=== PATIENT | female | born 1980 | race Caucasian/White ===

== ENCOUNTER 2019-05-19 17:59 | Emergency (ER) | payer SELFPAY ==
[~2019-05-19] VITALS: Ht 170.2 cm; Wt 107.0 kg
[2019-05-19] MEDS ORDERED: IV NORMAL SALINE 1000ML BAG 1,000 ML IV SCH (18:51)
[2019-05-19] MEDS ORDERED: ONDANSETRON PF 4 MG/2 ML VIAL. IV ONE (19:00)
[2019-05-19] MEDS ORDERED: KETOROLAC 30 MG/ML VIAL. IV ONE (19:00)
--- NOTE | 2019-05-19 19:14 | PHYS DOC ---
Adult General Chief Complaint Chief Complaint: FLANK PAIN HPI HPI 38-year-old female presents to the emergency Department complaints of right flank pain radiation to the groin. Patient states she had symptoms of urinary tr act infection yesterday with concerns for burning as well as frequency. She was taking medications [id number] to help with symptoms subsequently developed right flank pain today as described above. She denies any nausea, vomiting, diarrhea. She states she had low-grade temperature this morning at 9 AM however that subsequently resolved. Patient went to urgent care and she was sent to this facility for further evaluation. Nothing makes her pain worse, nothing makes her pain better. She has no history of kidney stones that pass. She denies any headache chest pain or visual change. Review of Systems Review of Systems Constitutional: fever Respiratory: Denies cough or shortness of breath [] Cardiovascular: No additional information not addressed in HPI [] GI: Right flank with radiation to the groin, nausea, vomiting, bloody stools or diarrhea [] : Feels her bladder is full Musculoskeletal: right flank Integument: Denies rash or skin lesions [] Neurologic: Denies headache, focal weakness or sensory changes [] All other systems were reviewed and found to be within normal limits, except as documented in this note. Current Medications Current Medications Current Medications Medications (Trade) Dose Ordered Sig/Sunita Start Time Stop Time Status Last Admin Dose Admin Ciprofloxacin/ Dextrose 200 ml @ 200 mls/hr 1X ONCE 05/19/19 19:45 05/19/19 20:44 DC 05/19/19 20:10 200 MLS/HR Ketorolac Tromethamine (Toradol 30mg Vial) 30 mg 1X ONCE 05/19/19 19:00 05/19/19 19:16 DC 05/19/19 19:00 30 MG Ondansetron HCl (Zofran) 4 mg 1X ONCE 05/19/19 19:00 05/19/19 19:16 DC Sodium Chloride 1,000 ml @ 1,000 mls/hr Q1H 05/19/19 18:51 05/19/19 19:50 DC 05/19/19 18:51 1,000 MLS/HR Allergies Allergies Allergies Coded Allergies Type Severity Reaction Last Updated Verified Penicillins Allergy Intermediate 05/19/19 Yes Physical Exam Physical Exam Constitutional: Well developed, well nourished, no acute distress, non-toxic appearance. [] Cardiovascular:Heart rate regular rhythm, no murmur [] Lungs & Thorax: Bilateral breath sounds clear to auscultation [] Abdomen: Bowel sounds normal, soft, no tenderness, no masses, no pulsatile masses. [] Skin: Warm, dry, no erythema, no rash. [] Back: Right CVA tenderness Extremities: No tenderness, no edema. [] Neurologic: Alert and oriented X 3, no focal deficits noted. [] Psychologic: Affect normal, judgement normal, mood normal. [] Current Patient Data Lab Values Laboratory Tests Test 05/19/19 19:10 05/19/19 19:25 White Blood Count 13.3 x10^3/uL (4.0-11.0) H Red Blood Count 4.35 x10^6/uL (3.50-5.40) Hemoglobin 13.0 g/dL (12.0-15.5) Hematocrit 37.5 % (36.0-47.0) Mean Corpuscular Volume 86 fL (79-100) Mean Corpuscular Hemoglobin 30 pg (25-35) Mean Corpuscular Hemoglobin Concent 35 g/dL (31-37) Red Cell Distribution Width 13.5 % (11.5-14.5) Platelet Count 275 x10^3/uL (140-400) Neutrophils (%) (Auto) 77 % (31-73) H Lymphocytes (%) (Auto) 18 % (24-48) L Monocytes (%) (Auto) 5 % (0-9) Eosinophils (%) (Auto) 0 % (0-3) Basophils (%) (Auto) 1 % (0-3) Neutrophils # (Auto) 10.2 x10^3/uL (1.8-7.7) H Lymphocytes # (Auto) 2.3 x10^3/uL (1.0-4.8) Monocytes # (Auto) 0.6 x10^3/uL (0.0-1.1) Eosinophils # (Auto) 0.1 x10^3/uL (0.0-0.7) Basophils # (Auto) 0.1 x10^3/uL (0.0-0.2) Urine Collection Type Unknown Urine Color Will Urine Clarity Clear Urine pH 6.0 Urine Specific [place] <=1.005 Urine Protein Negative mg/dL (NEG-TRACE) Urine Glucose (UA) Negative mg/dL (NEG) Urine Ketones (Stick) Negative mg/dL (NEG) Urine Blood Moderate (NEG) Urine Nitrite Positive (NEG) Urine Bilirubin Negative (NEG) Urine Urobilinogen Dipstick 1.0 mg/dL (0.2 mg/dL) Urine Leukocyte Esterase Moderate (NEG) Urine RBC 3-5 /HPF (0-2) Urine WBC 11-20 /HPF (0-4) Urine Squamous Epithelial Cells Few /LPF Urine Bacteria Many /HPF (0-FEW) Sodium Level 137 mmol/L (136-145) Potassium Level 3.9 mmol/L (3.5-5.1) Chloride Level 102 mmol/L (98-107) Carbon Dioxide Level 26 mmol/L (21-32) Anion Gap 9 (6-14) Blood Urea Nitrogen 11 mg/dL (7-20) Creatinine 1.0 mg/dL (0.6-1.0) Estimated GFR (Cockcroft-Gault) 62.1 BUN/Creatinine Ratio 11 (6-20) Glucose Level 96 mg/dL (70-99) Calcium Level 9.1 mg/dL (8.5-10.1) Total Bilirubin 0.3 mg/dL (0.2-1.0) Aspartate Amino Transferase (AST) 14 U/L (15-37) L Alanine Aminotransferase (ALT) 17 U/L (14-59) Alkaline Phosphatase 103 U/L (46-116) Total Protein 7.6 g/dL (6.4-8.2) Albumin 3.6 g/dL (3.4-5.0) Albumin/Globulin Ratio 0.9 (1.0-1.7) L POC Urine HCG, Qualitative Hcg negative (Negative) Laboratory Tests 05/19/19 19:10 Laboratory Tests 05/19/19 19:10 EKG EKG [] Radiology/Procedures Radiology/Procedures [facility] [address] [place] [address] IMAGING REPORT Signed PATIENT: ISAMAR SHIELDS JACCOUNT: [id number] : 1980 LOCATION: ER AGE: 38 SEX: F EXAM STATUS: REG ER ORD. PHYSICIAN: JOHANA SHEPPARD MD REASON: right flank pain, + UTI PROCEDURE: CT ABDOMEN PELVIS WO CONTRAST Study: CT abdomen and pelvis without contrast Indication: Right flank pain. UTI. Comparison: None. Technique: Helical CT imaging performed of the abdomen and pelvis without the use of intravenous contrast. Sagittal and coronal reformats were obtained. One or more of the following individualized dose reduction techniques were utilized for this examination: 1. Automated exposure control 2. Adjustment of the mA and/or kV according to patient size 3. Use of iterative reconstruction technique. Findings: No focal hepatic abnormality. The liver is somewhat prominent in size and there may be mild fatty infiltration. Mildly prominent spleen measuring just over 13 cm in craniocaudal dimension. The gallbladder, pancreas and adrenal glands are within normal limits. Mild asymmetric prominence of the right ureter relative to the left. Additionally, mild right periureteral fat stranding. No nephrolithiasis seen within either kidney, within the ureters or within the urinary bladder. Mildly distended urinary bladder without wall thickening or pericystic inflammation. The uterus is unremarkable. Left ovarian cystic structure on image 186 series 2 measured at approximately 3.8 cm. No pericolonic inflammation. Normal appendix. Unremarkable small bowel and stomach noting incomplete evaluation without oral contrast. Normal aortic caliber. No free fluid or air. No acute fracture or suspicious osseous abnormality. Mild lower lumbar facet degeneration. Partially lumbarized S1 vertebral body. Impression: 1. Slight asymmetric prominence of the right ureter relative to the left as well as faint periureteral fat stranding on the right. No nephrolithiasis is seen. The imaging appearance is nonspecific but could be related to a recently passed stone or potentially an ascending urinary tract infection given reported UTI. No perinephric fat stranding or asymmetric enlargement of the right kidney to suggest pyelonephritis. 2. The liver is prominent in size and there is borderline prominence of the spleen. There may be a component of fatty infiltration of the liver. Electronically signed by: EMILIA CHUA MD (05/19/2019 8:17 PM) [facility] DICTATED and SIGNED BY: EMILIA CHUA MD DATE: 05/19/192016 [] Course & Med Decision Making Course & Med Decision Making Pertinent Labs and Imaging studies reviewed. (See chart for details) []38-year-old female presents to the emergency Department complaints of right flank pain radiation to the groin. Patient states she had symptoms of urinary t ract infection yesterday with concerns for burning as well as frequency. She was taking medications [id number] to help with symptoms subsequently developed right flank pain today as described above. She denies any nausea, vomiting, diarrhea. She states she had low-grade temperature this morning at 9 AM however that subsequently resolved. Patient went to urgent care and she was sent to this facility for further evaluation. Nothing makes her pain worse, nothing makes her pain better. She has no history of kidney stones that pass. She denies any headache chest pain or visual change. Evidence of UTI - cipro given in ER CT scan without acute stone or pyelo [place] po/Toradol IV Recommend po abx and dc home with return precautions provided Discussed with patient at bedside Romel Disclaimer Romel Disclaimer This electronic medical record was generated, in whole or in part, using a voice recognition dictation system. Departure Departure Impression: Primary Impression: UTI (urinary tract infection) Additional Impression: Flank pain Disposition: HOME, SELF-CARE Condition: IMPROVED Referrals: NO PCP (PCP) Patient Instructions: Flank Pain, [id number], Urinary Tract Infection Additional Instructions: Recommend follow up with PCP 3 - 5 days Return to the ER with worsening symptoms, intractable pain, fever, altered mental status Tylenol/Motrin as needed for pain Take antibiotics as directed norco as needed for pain Scripts Ciprofloxacin Hcl (CIPRO) 250 Mg Tablet 2 TAB PO BID for infection for 5 Days, #20 TAB Prov: JOHANA SHEPPARD MD 05/19/19 Problem Qualifiers Primary Impression: UTI (urinary tract infection) Urinary tract infection type: site unspecified Hematuria presence: with hematuria Qualified Codes: N39.0 - Urinary tract infection, site not specified; R31.9 - Hematuria, unspecified JOHANA SHEPPARD MD May 19, 2019 19:14
[2019-05-19 19:19] LABS: BASO # 0.1 x10^3/uL (0.0-0.2); BASO % 1 % (0-3); EOS # 0.1 x10^3/uL (0.0-0.7); EOS % 0 % (0-3); HEMATOCRIT 37.5 % (36.0-47.0); LYMPH # 2.3 x10^3/uL (1.0-4.8); LYMPH % 18 % (24-48); MEAN CORPUSCULAR HEMOGLOBIN 30 pg (25-35); MEAN CORPUSCULAR HGB CONC 35 g/dL (31-37); MEAN CORPUSCULAR VOLUME 86 fL (79-100); MONO # 0.6 x10^3/uL (0.0-1.1); MONO % 5 % (0-9); NEUT # 10.2 x10^3/uL (1.8-7.7); NEUT % 77 % (31-73); PLATELET COUNT 275 x10^3/uL (140-400); RED BLOOD COUNT 4.35 x10^6/uL (3.50-5.40); RED CELL DISTRIBUTION WIDTH 13.5 % (11.5-14.5); WHITE BLOOD COUNT 13.3 x10^3/uL (4.0-11.0)
[2019-05-19 19:26] LABS: CALCIUM 9.1 mg/dL (8.5-10.1); GFR 62.1; POTASSIUM 3.9 mmol/L (3.5-5.1)
[2019-05-19 19:30] LABS: BILIRUBIN,URINE NEGATIVE (NEG); CLARITY,URINE CLEAR; COLOR,URINE ORANGE; NITRITE,URINE POSITIVE (NEG); PROTEIN,URINE NEGATIVE (NEG-TRACE)
[2019-05-19 19:31] LABS: ALBUMIN 3.6 g/dL (3.4-5.0); ALBUMIN/GLOBULIN RATIO 0.9 (1.0-1.7); TOTAL BILIRUBIN 0.3 mg/dL (0.2-1.0); TOTAL PROTEIN 7.6 g/dL (6.4-8.2)
[2019-05-19 19:41] LABS: BACTERIA,URINE MANY /HPF (0-FEW); SQUAMOUS EPITHELIAL CELL,UR FEW /LPF
[2019-05-19] MEDS ORDERED: CIPROFLOXACIN 400MG PREMIX 200 ML IV ONE (19:45)
--- NOTE | 2019-05-19 20:21 | RAD ---
Study: CT abdomen and pelvis without contrast Indication: Right flank pain. UTI. Comparison: None. Technique: Helical CT imaging performed of the abdomen and pelvis without the use of intravenous contrast. Sagittal and coronal reformats were obtained. One or more of the following individualized dose reduction techniques were utilized for this examination: 1. Automated exposure control 2. Adjustment of the mA and/or kV according to patient size 3. Use of iterative reconstruction technique. Findings: No focal hepatic abnormality. The liver is somewhat prominent in size and there may be mild fatty infiltration. Mildly prominent spleen measuring just over 13 cm in craniocaudal dimension. The gallbladder, pancreas and adrenal glands are within normal limits. Mild asymmetric prominence of the right ureter relative to the left. Additionally, mild right periureteral fat stranding. No nephrolithiasis seen within either kidney, within the ureters or within the urinary bladder. Mildly distended urinary bladder without wall thickening or pericystic inflammation. The uterus is unremarkable. Left ovarian cystic structure on image 186 series 2 measured at approximately 3.8 cm. No pericolonic inflammation. Normal appendix. Unremarkable small bowel and stomach noting incomplete evaluation without oral contrast. Normal aortic caliber. No free fluid or air. No acute fracture or suspicious osseous abnormality. Mild lower lumbar facet degeneration. Partially lumbarized S1 vertebral body. Impression: 1. Slight asymmetric prominence of the right ureter relative to the left as well as faint periureteral fat stranding on the right. No nephrolithiasis is seen. The imaging appearance is nonspecific but could be related to a recently passed stone or potentially an ascending urinary tract infection given reported UTI. No perinephric fat stranding or asymmetric enlargement of the right kidney to suggest pyelonephritis. 2. The liver is prominent in size and there is borderline prominence of the spleen. There may be a component of fatty infiltration of the liver. Electronically signed by: EMILIA CHUA MD (05/19/2019 8:17 PM) [facility]
[2019-05-19] MEDS ORDERED: CIPR250T30 PO (20:56)
[2019-05-19] MEDS ORDERED: HYDR-3164 PO (20:59)
[2019-05-19 21:09] VITALS: BP 148/95
[2019-05-19] MEDS ORDERED: HYDROcodone/APAP 5/325MG 1 TAB TABLET PO ONE (21:15)
== END 2019-05-19 21:20 | disposition home or self-care (01) ==
LOC: ER 17:59
DX: N39.0 Urinary tract infection, site not specified (principal); R10.31 Right lower quadrant pain; Z79.899 Other long term (current) drug therapy; Z88.0 Allergy status to penicillin
CPT/HCPCS: 36415; 74176; 80053; 81001; 81025; 85025; 87086; 96365; 96375; 99285; J0744; J1885; J7030; 87186

== ENCOUNTER 2020-04-13 15:57 | Emergency (ER) | payer BC ==
[~2020-04-13] VITALS: Ht 170.2 cm; Wt 107.0 kg
[~2020-04-13 15:57] MED LIST: CIPR250T30 PO; HYDR-3164 PO
[2020-04-13 16:41] LABS: BASO # 0.1 x10^3/uL (0.0-0.2); BASO % 1 % (0-3); EOS # 0.1 x10^3/uL (0.0-0.7); EOS % 1 % (0-3); HEMOGLOBIN 13.5 g/dL (12.0-15.5); LYMPH # 2.2 x10^3/uL (1.0-4.8); LYMPH % 19 % (24-48); MEAN CORPUSCULAR HEMOGLOBIN 30 pg (25-35); MEAN CORPUSCULAR HGB CONC 35 g/dL (31-37); MEAN CORPUSCULAR VOLUME 87 fL (79-100); MONO # 0.6 x10^3/uL (0.0-1.1); MONO % 5 % (0-9); NEUT # 8.3 x10^3/uL (1.8-7.7); NEUT % 74 % (31-73); PLATELET COUNT 297 x10^3/uL (140-400); RED CELL DISTRIBUTION WIDTH 13.2 % (11.5-14.5); WHITE BLOOD COUNT 11.2 x10^3/uL (4.0-11.0)
[2020-04-13] MEDS ORDERED: LORazepam 0.5 MG TABLET PO ONE (16:45)
[2020-04-13 16:53] LABS: CALCIUM 9.7 mg/dL (8.5-10.1); CREATININE 1.1 mg/dL (0.6-1.0); GFR 55.3; POTASSIUM 4.1 mmol/L (3.5-5.1)
--- NOTE | 2020-04-13 18:04 | ED.ADGEN ---
Past Medical History Past Medical History: Asthma, Other Additional Past Medical Histor: RAYNAUD'S DZ Past Surgical History: No Surgical History Smoking Status: Current Every Day Smoker Additional Information: 3 CIGS/DAY Alcohol Use: None Drug Use: None General Adult EDM: Chief Complaint: CHEST PAIN HPI: HPI: Patient is a 39-year-old female who presents to the emergency room after being asked to come by her employer. She has been having intermittent chest pains throughout the week. She went to [facility] emergency room earlier this week and her blood pressure was significantly elevated. They told her it was likely due to a UTI. She has a follow-up appointment with a new primary care doctor tomorrow. She has been having significant chest tightness throughout today. She has had shortness of breath since she had coronavirus at the end of February. She no longer has any other symptoms related to her coronavirus. She has never had high blood pressure previously. She denies any headache, decreased urination, shortness of breath. Review of Systems: Review of Systems: Complete ROS is negative unless otherwise documented in HPI Current Medications: Current Medications Medications (Trade) Dose Ordered Sig/Sunita Start Time Stop Time Status Last Admin Dose Admin Info (CONTRAST GIVEN -- Rx MONITORING) 1 each PRN DAILY PRN 04/13/20 18:45 04/13/20 20:35 DC Iohexol (Omnipaque 350 Mg/ml) 90 ml 1X ONCE 04/13/20 18:45 04/13/20 18:46 DC 04/13/20 18:59 90 ML Ketorolac Tromethamine (Toradol 15mg Vial) 15 mg 1X ONCE 04/13/20 20:00 04/13/20 20:01 DC 04/13/20 20:04 15 MG Lorazepam (Ativan Inj) 1 mg 1X ONCE 04/13/20 20:00 04/13/20 20:01 DC 04/13/20 20:04 1 MG Lorazepam (Ativan) 0.5 mg 1X ONCE 04/13/20 16:45 04/13/20 16:46 DC 04/13/20 18:26 0.5 MG Allergies: Allergies: Allergies Coded Allergies Type Severity Reaction Last Updated Verified Penicillins Allergy Intermediate 05/19/19 Yes Physical Exam: PE: General: Awake, alert, NAD. Well Nourished, well hydrated. Cooperative HEENT: Atraumatic, EOMI, PERRL, airway patent, moist oral mucosa Neck: Supple, trachea midline Respiratory: CTA bilaterally, normal effort, no wheezing/crackles CV: RRR, no murmur, cap refill <2 GI: Soft, nondistended, nontender, no masses MSK: No obvious deformities Skin: Warm, dry, intact Neuro: A&O x3, speech NL, sensory and motor grossly intact, no focal deficits Psych: Anxious, not suicidal or homicidal Current Patient Data: Labs: Laboratory Tests Test 04/13/20 16:30 04/13/20 17:50 White Blood Count 11.2 x10^3/uL (4.0-11.0) H Red Blood Count 4.50 x10^6/uL (3.50-5.40) Hemoglobin 13.5 g/dL (12.0-15.5) Hematocrit 39.0 % (36.0-47.0) Mean Corpuscular Volume 87 fL (79-100) Mean Corpuscular Hemoglobin 30 pg (25-35) Mean Corpuscular Hemoglobin Concent 35 g/dL (31-37) Red Cell Distribution Width 13.2 % (11.5-14.5) Platelet Count 297 x10^3/uL (140-400) Neutrophils (%) (Auto) 74 % (31-73) H Lymphocytes (%) (Auto) 19 % (24-48) L Monocytes (%) (Auto) 5 % (0-9) Eosinophils (%) (Auto) 1 % (0-3) Basophils (%) (Auto) 1 % (0-3) Neutrophils # (Auto) 8.3 x10^3/uL (1.8-7.7) H Lymphocytes # (Auto) 2.2 x10^3/uL (1.0-4.8) Monocytes # (Auto) 0.6 x10^3/uL (0.0-1.1) Eosinophils # (Auto) 0.1 x10^3/uL (0.0-0.7) Basophils # (Auto) 0.1 x10^3/uL (0.0-0.2) D-Dimer (Esme) 1.12 ug/mlFEU (0.00-0.50) H Sodium Level 141 mmol/L (136-145) Potassium Level 4.1 mmol/L (3.5-5.1) Chloride Level 106 mmol/L (98-107) Carbon Dioxide Level 24 mmol/L (21-32) Anion Gap 11 (6-14) Blood Urea Nitrogen 9 mg/dL (7-20) Creatinine 1.1 mg/dL (0.6-1.0) H Estimated GFR (Cockcroft-Gault) 55.3 Glucose Level 113 mg/dL (70-99) H Calcium Level 9.7 mg/dL (8.5-10.1) Troponin I Quantitative < 0.017 ng/mL (0.000-0.055) QB-Yil-K-Type Natriuretic Peptide 140 pg/mL (0-124) H POC Urine HCG, Qualitative Hcg negative (Negative) Laboratory Tests 04/13/20 16:30 Laboratory Tests 04/13/20 16:30 Vital Signs: Vital Signs Date Time Temp Pulse Resp B/P (MAP) Pulse Ox O2 Delivery O2 Flow Rate FiO2 04/13/20 20:25 88 22 152/73 (99) 96 Room Air 04/13/20 16:44 98.6 98.6 EKG: EKG: EKG interpreted by me normal sinus rhythm with a rate of 94 normal axis normal intervals normal ST segments [] Heart Score: HEART Score for Chest Pain: HEART Score for Chest Pain Response (Comments) Value History Slighlty/Non-Suspicious 0 ECG Normal 0 Age < 45 0 Risk Factors 1 or 2 Risk Factors 1 Troponin < Normal Limit 0 Total 1 Risk Factors: Risk Factors: DM, Current or recent (<one month) smoker, HTN, HLP, family history of CAD, obesity. Risk Scores: Score 0 - 3: 2.5% MACE over next 6 weeks - Discharge Home Score 4 - 6: 20.3% MACE over next 6 weeks - Admit for Clinical Observation Score 7 - 10: 72.7% MACE over next 6 weeks - Early Invasive Strategies Radiology/Procedures: Radiology/Procedures: [][facility] [address] [place] [address] IMAGING REPORT Signed PATIENT: ISAMAR SHIELDS JACCOUNT: [id number] : 1980 LOCATION: ER AGE: 39 SEX: F EXAM STATUS: REG ER ORD. PHYSICIAN: GUERA CAMERON MD REASON: chest pain, 6 weeks s/p covid, elevated d dimer PROCEDURE: CT ANGIOGRAPHY CHEST EXAM: CT ANGIOGRAPHY CHEST, CHEST PA LATERAL INDICATION: Reason: chest pain, 6 weeks s/p covid, elevated d dimer / Spl. Instructions: [id number] 90ml / History: . TECHNIQUE: PA and lateral views COMPARISON: None FINDINGS: The heart size is normal. The great vessels appear unremarkable. There is no hilar or mediastinal mass. The lungs are clear. There is no pleural effusion or pneumothorax. There are no significant osseous abnormalities. IMPRESSION: No active cardiopulmonary disease. EXAM: CT Pulmonary Angiogram INDICATION: Reason: chest pain, 6 weeks s/p covid, elevated d dimer / Spl. Instructions: [id number] 90ml / History: TECHNIQUE: Multi-detector row images were acquired from the thoracic inlet through the upper abdomen with the use of IV contrast. Sagittal and coronal images were acquired from the transaxial data. MIP images of the pulmonary arteries were obtained. All CT scans performed at this facility utilize dose optimization techniques as appropriate to the exam, including the following: Automated exposure control and adjustment of the mA and/or KV according to patient size (this includes techniques or standardized protocols for targeted exams where dose is indication/reason for exam). IV CONTRAST: Administered COMPARISON: Chest x-ray obtained earlier the same day, abdomen and pelvis CT without IV contrast of 05/28/2019. FINDINGS: Respiratory motion artifact degrades detail. PULMONARY ARTERIES: No pulmonary emboli are identified. CARDIOVASCULAR: Unremarkable Aorta is normal caliber. MEDIASTINUM & STEVEN: No adenopathy or masses. LUNGS: Centrilobular emphysema is present. No focal consolidation lung mass or suspicious lung nodule is identified PLEURAL SPACE: No pleural effusions or pneumothorax. OSSEOUS & SOFT TISSUE: Unremarkable ABDOMEN: The visualized portions of the upper abdomen are unremarkable. IMPRESSION: Respiratory motion degraded study showing emphysema but no pulmonary emboli Electronically signed by: Rocky Rodriguez MD (04/13/2020 7:21 PM) [facility] [place] [place] DICTATED and SIGNED BY: ROCKY RODRIGUEZ MD DATE: 04/13/201920 Course & Med Decision Making: Course & Med Decision Making Pertinent Labs and Imaging studies reviewed. (See chart for details) Patient is a 39-year-old female who presents to the emergency room complaining of chest tightness and high blood pressure. Patient is very anxious on exam. Pain is atypical for cardiac chest pain. She recently was diagnosed with co ronavirus and has been recovering. Her positive test was 6 weeks ago. Shortness of breath work-up was ordered including CBC, BMP, troponin, BNP, D- dimer, chest x-ray. Patient discussed with oncoming physician who will assume care. Received signout from Dr. Donahue regarding Ms. Lou. Patient has chest pain and high blood pressure. Patient has a heart score of 1. Troponin is negative. Doubt acute coronary syndrome. Patient had elevated D-dimer therefore she underwent a CT angiogram which is negative for pulmonary embolism. Patient has a follow-up appointment tomorrow with her primary care physician and will be instructed to follow-up. Patient will also need a referral to [facility] for possible echo. We will hold off on blood pressure meds as per patient she has a follow-up appointment tomorrow. Discussed with patient and for the emphysematous changes on CT and need for smoking cessation. On my assessment patient is alert and anxious. Patient is in no respiratory distress. Dragon Disclaimer: Meme Disclaimer: This electronic medical record was generated, in whole or in part, using a voice recognition dictation system. Departure Departure Impression: Primary Impression: Hypertension Additional Impression: Chest tightness Disposition: 01 DC HOME SELF CARE/HOMELESS Condition: STABLE Referrals: NO PCP (PCP) DULCE MARIA LADD MD 2-3 days Patient Instructions: Chest Pain (Nonspecific), Hypertension Additional Instructions: EMERGENCY DEPARTMENT GENERAL DISCHARGE INSTRUCTIONS THANK YOU for coming to [facility] Emergency Department (ED) today and trusting us with your care. We trust that you had a positive experience in our Emergency Department. If you wish to speak to the department Management you can contact the department coordinator at . YOUR FOLLOW UP INSTRUCTIONS ARE FOLLOWS: Do you have a private doctor? If you do not have a private doctor, please ask for a resource list of physicians or clinics that may be able to assist you with follow up care. The Emergency Physician has interpreted your x-rays. The X-ray specialist will also review them. If there is a change in the findings you will be notified in 48 hours when at all possible. A lab test or lab culture may have been done, your results will be reviewed and you will be notified if you need a change in treatment. ADDITIONAL INSTRUCTIONS AND INFORMATION Your care today has been supervised by a physician who is specially trained in emergency care. Many problems require more than one evaluation for a complete diagnosis and treatment. We recommend that you schedule your follow up appointment as recommended to ensure complete treatment of your illness or injury. If you are unable to obtain follow up care and continue to have a problem, or if your condition worsens we recommend that you return to the ED. We are not able to safely determine your condition over the phone nor are we able to give sound medical advice over the phone. For these safety reasons, if you call for medical advice we will ask you to come to the ED for further evaluation If you have any questions regarding these discharge instructions please call the ED at . SAFETY INFORMATION In the interest of safety, wellness, and injury prevention; we encourage you to wear your seatbelt, if you smoke; quit smoking, and we encourage your family to use protective helmet for bicycling and other sporting events that present an increased risk for head injury. IF YOUR SYMPTOMS WORSEN OR NEW SYMPTOMS DEVELOP, OR YOU HAVE CONCERNS ABOUT YOUR CONDITION; OR IF YOUR CONDITION WORSENS WHILE YOU ARE WAITING FOR YOUR FOLLOW UP APPOINTMENT; EITHER CONTACT YOUR PRIMARY CARE DOCTOR, THE PHYSICIAN WHOSE NAME AND NUMBER YOU WERE GIVEN, OR RETURN TO THE ED IMMEDIATELY. Problem Qualifiers JA DONAHUE MD Apr 13, 2020 18:04 GUERA CAMERON MD Apr 13, 2020 19:40
[2020-04-13] MEDS ORDERED: IOHEXOL 350 MG/ML 100 ML VIAL. IV ONE (18:45)
[2020-04-13] MEDS ORDERED: CONTRAST GIVEN. MC PRN (18:45)
--- NOTE | 2020-04-13 19:24 | RAD ---
EXAM: CT ANGIOGRAPHY CHEST, CHEST PA LATERAL INDICATION: Reason: chest pain, 6 weeks s/p covid, elevated d dimer / Spl. Instructions: [id number] 90ml / History: . TECHNIQUE: PA and lateral views COMPARISON: None FINDINGS: The heart size is normal. The great vessels appear unremarkable. There is no hilar or mediastinal mass. The lungs are clear. There is no pleural effusion or pneumothorax. There are no significant osseous abnormalities. IMPRESSION: No active cardiopulmonary disease. EXAM: CT Pulmonary Angiogram INDICATION: Reason: chest pain, 6 weeks s/p covid, elevated d dimer / Spl. Instructions: [id number] 90ml / History: TECHNIQUE: Multi-detector row images were acquired from the thoracic inlet through the upper abdomen with the use of IV contrast. Sagittal and coronal images were acquired from the transaxial data. MIP images of the pulmonary arteries were obtained. All CT scans performed at this facility utilize dose optimization techniques as appropriate to the exam, including the following: Automated exposure control and adjustment of the mA and/or KV according to patient size (this includes techniques or standardized protocols for targeted exams where dose is indication/reason for exam). IV CONTRAST: Administered COMPARISON: Chest x-ray obtained earlier the same day, abdomen and pelvis CT without IV contrast of 05/28/2019. FINDINGS: Respiratory motion artifact degrades detail. PULMONARY ARTERIES: No pulmonary emboli are identified. CARDIOVASCULAR: Unremarkable Aorta is normal caliber. MEDIASTINUM & STEVEN: No adenopathy or masses. LUNGS: Centrilobular emphysema is present. No focal consolidation lung mass or suspicious lung nodule is identified PLEURAL SPACE: No pleural effusions or pneumothorax. OSSEOUS & SOFT TISSUE: Unremarkable ABDOMEN: The visualized portions of the upper abdomen are unremarkable. IMPRESSION: Respiratory motion degraded study showing emphysema but no pulmonary emboli Electronically signed by: Kellee Rodriguez MD (04/13/2020 7:21 PM) [facility] [place]
--- NOTE | 2020-04-13 19:24 | RAD ---
EXAM: CT ANGIOGRAPHY CHEST, CHEST PA LATERAL INDICATION: Reason: chest pain, 6 weeks s/p covid, elevated d dimer / Spl. Instructions: [id number] 90ml / History: . TECHNIQUE: PA and lateral views COMPARISON: None FINDINGS: The heart size is normal. The great vessels appear unremarkable. There is no hilar or mediastinal mass. The lungs are clear. There is no pleural effusion or pneumothorax. There are no significant osseous abnormalities. IMPRESSION: No active cardiopulmonary disease. EXAM: CT Pulmonary Angiogram INDICATION: Reason: chest pain, 6 weeks s/p covid, elevated d dimer / Spl. Instructions: [id number] 90ml / History: TECHNIQUE: Multi-detector row images were acquired from the thoracic inlet through the upper abdomen with the use of IV contrast. Sagittal and coronal images were acquired from the transaxial data. MIP images of the pulmonary arteries were obtained. All CT scans performed at this facility utilize dose optimization techniques as appropriate to the exam, including the following: Automated exposure control and adjustment of the mA and/or KV according to patient size (this includes techniques or standardized protocols for targeted exams where dose is indication/reason for exam). IV CONTRAST: Administered COMPARISON: Chest x-ray obtained earlier the same day, abdomen and pelvis CT without IV contrast of 05/28/2019. FINDINGS: Respiratory motion artifact degrades detail. PULMONARY ARTERIES: No pulmonary emboli are identified. CARDIOVASCULAR: Unremarkable Aorta is normal caliber. MEDIASTINUM & STEVEN: No adenopathy or masses. LUNGS: Centrilobular emphysema is present. No focal consolidation lung mass or suspicious lung nodule is identified PLEURAL SPACE: No pleural effusions or pneumothorax. OSSEOUS & SOFT TISSUE: Unremarkable ABDOMEN: The visualized portions of the upper abdomen are unremarkable. IMPRESSION: Respiratory motion degraded study showing emphysema but no pulmonary emboli Electronically signed by: Kellee Rodriguez MD (04/13/2020 7:21 PM) [facility] [place]
[2020-04-13] MEDS ORDERED: KETOROLAC 15 MG/ML VIAL. IVP ONE (20:00)
[2020-04-13 20:25] VITALS: BP 152/73
== END 2020-04-13 20:34 | disposition home or self-care (01) ==
LOC: ER 15:57
DX: R07.89 Other chest pain (principal); I10 Essential (primary) hypertension; J45.909 Unspecified asthma, uncomplicated; F17.210 Nicotine dependence, cigarettes, uncomplicated; Z88.0 Allergy status to penicillin
CPT/HCPCS: 36415; 71046; 71275; 80048; 81025; 83880; 84484; 85025; 85379; 93005; 96374; 96375; 99285; J1885; J2060; Q9967

== ENCOUNTER 2021-03-07 08:30 | Emergency (ER) | payer BC ==
[~2021-03-07] VITALS: Ht 170.2 cm; Wt 106.0 kg
--- NOTE | 2021-03-07 08:44 | PHYS DOC ---
Past Medical History Past Medical History: Asthma, Other Additional Past Medical Histor: RAYNAUD'S DZ Past Surgical History: No Surgical History Smoking Status: Current Every Day Smoker Alcohol Use: None Drug Use: None General Adult HPI: HPI: 40-year-old female past medical history of asthma, Raynaud's, hypertension (take s metoprolol) and tobacco use, presents the ED from work with her coworker/friend, (patient consents to his/her/their knowledge and involvement in pts' medical care), complaints of " extreme right-sided sharp chest pain," described as squeezing and stabbing in nature, that woke patient up around 6:30 AM, described as a 4 out of 10 pain. Patient states pain is intermittent lasting for no more than 10 seconds and comes in waves with associated diaphoresis. States she is been having similar symptoms, " everything started after Covid," and an emergency medicine physician referred her to see a animal care worker (). Reports history of Covid and February 2020. Received her Pfizer vaccine in June 2020. Last menstrual period was 3 days ago. Denies any history of alcohol, cocaine, methamphetamine or drug use. Denies any blunt wall chest injury. No history of caffeine, increase physical activity or heavy lifting. Pain is not reproducible with palpation. Father with history of maker, CAD in his late 50s. No personal or family history of AAA, AAD, CTD (ehlos danlos or marfans), cardiac arrhythmias (need for AICD), sudden or unexplainable (under 50 years of age or with exertion), or clotting disorders. Does not believe symptoms are attributed to anxiety. EMR was reviewed and patient has similar presentation April 2020. Follows with Dr. Edwards at [facility] primary care physician. 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 Review of Systems: Review of Systems: Constitutional: Denies fever or chills. [] Eyes: Denies change in visual acuity. [] HENT: Denies nasal congestion or sore throat. [] Respiratory: Denies cough or shortness of breath or hemoptysis Cardiovascular: Denies syncope or edema. [] GI: Denies abdominal pain, vomiting, bloody stools or diarrhea. [] : Denies dysuria or vaginal bleeding Musculoskeletal: Denies back pain or joint pain. [] Integument: Denies rash or blistering lesions Neurologic: Denies headache, focal weakness or sensory changes. [] Endocrine: Denies polyuria or polydipsia. [] Lymphatic: Denies swollen glands. [] Psychiatric: Denies depression or anxiety. [] Heart Score: C/O Chest Pain: Yes HEART Score for Chest Pain: HEART Score for Chest Pain Response (Comments) Value History Slighlty/Non-Suspicious 0 ECG Normal 0 Age < 45 0 Risk Factors >3 Risk Factors or Hx CAD 2 Troponin < Normal Limit 0 Total 2 Risk Factors: Risk Factors: DM, Current or recent (<one month) smoker, HTN, HLP, family history of CAD, obesity. Risk Scores: Score 0 - 3: 2.5% MACE over next 6 weeks - Discharge Home Score 4 - 6: 20.3% MACE over next 6 weeks - Admit for Clinical Observation Score 7 - 10: 72.7% MACE over next 6 weeks - Early Invasive Strategies Allergies: Allergies: Allergies Coded Allergies Type Severity Reaction Last Updated Verified Penicillins Allergy Intermediate 05/19/19 Yes Physical Exam: PE: Constitutional: Well developed, well nourished, no acute distress, non-toxic appearance, hypertensive, 174/82 on my exam HENT: Normocephalic, atraumatic, Eyes: EOMI, conjunctiva normal, no discharge. Neck: Normal range of motion, supple, Cardiovascular: S1/2 present, regular rhythm, unable to reproduce chest pain Lungs & Thorax: Speaking in full sentences, bilateral equal chest rise, no tachypnea or increased work of breathing, rapid breathing/hyperventilating but able to verbally deescalate Abdomen: soft, no tenderness, Skin: Warm, dry, no erythema, no rash. [] Extremities: No tenderness, no cyanosis, no unilateral lower extremity edema Neurologic: Alert and oriented X 3, normal motor function, normal sensory function, no focal deficits noted. [] Psychologic: Affect normal, judgement normal, patient very tremulous with rapid speech, appears anxious EKG: EKG: Sinus rhythm 85 bpm, no axis deviation, normal intervals, no T wave inversions, no ST elevations or ST depressions Radiology/Procedures: Radiology/Procedures: IMAGING REPORT Signed PATIENT: ISAMAR SHIELDS JACCOUNT: [id number] : 1980 LOCATION: ER AGE: 40 SEX: F EXAM STATUS: PRE ER ORD. PHYSICIAN: JUANA ANAYA DO REASON: cp PROCEDURE: PORTABLE CHEST 1V Site ID: [id number] EXAMINATION: XR CHEST 1V. HISTORY: 40 years Female chest pain. COMPARISON: None. Findings: There is a nodular density projecting over the mid the chest which could relate to ECG monitors leads. These need to be removed and repeat chest x- ray recommended to ensure no lung nodule is a present. No airspace consolidation. Nonspecific minimal prominence of interstitial markings is seen. The heart size is normal. There is no effusion or pneumothorax. The mediastinum and johnathon appear unremarkable. Impression: Appearance of nodular density projecting over the mid the right lung is possibly related to an ECG lead. Better evaluation with PA and lateral views after removal of ECG leads and wires from the chest is recommended. Electronically signed by: Margie Patricio MD (03/07/2021 9:07 AM) [id number] DICTATED and SIGNED BY: MARGIE PATRICIO MD DATE: 03/07/21 [id number] 0 IMAGING REPORT Signed PATIENT: ISAMAR SHIELDS JACCOUNT: [id number] : 1980 LOCATION: ER AGE: 40 SEX: F EXAM STATUS: REG ER ORD. PHYSICIAN: JUANA ANAYA DO REASON: severe cp, r/o dissection PROCEDURE: CT ANGIOGRAPHY CHEST CTA CHEST INDICATION: severe cp, r/o dissection COMPARISON STUDY: Chest radiograph 03/07/2021. CT chest 04/13/2020. TECHNIQUE: Unenhanced axial images were obtained through the thoracic aorta. Following the uneventful administration of a bolus of intravenous contrast, 80 Omnipaque 350, thin section axial CT images were obtained through the chest using the CT aorta protocol. Multiplanar reconstructions were obtained through the aorta. 3-D and MIP reconstructions were also obtained. PQRS compliance statement: One or more of the following individualized dose reduction techniques were util ized for this examination: 1. Automated exposure control 2. Adjustment of the mA and/or kV according to patient size 3. Use of iterative reconstruction technique FINDINGS: Unenhanced aorta: No mediastinal hemorrhage or periaortic fluid collection. No evidence of intramural hematoma. Enhanced aorta: No evidence of aortic dissection or aneurysm. No atherosclerosis or mural thrombus. Heart and Mediastinum: The visualized thyroid gland is normal in size and attenuation. No axillary or supraclavicular lymphadenopathy. No mediastinal, hilar or retrocrural lymphadenopathy. Calcified mediastinal and right hilar lymph nodes consistent with remote granulomatous disease The heart and pericardium are within normal limits. The pulmonary arteries are within normal limits. Lungs and Airways: No pulmonary mass or consolidation. Normal central airways. Pleura: The pleural spaces are normal. Abdomen: The visualized abdominal organs demonstrate no abnormality. Bones and Soft Tissues: No acute osseous abnormality. T9 sclerotic focus, likely a bone island. IMPRESSION: 1. No aortic intramural hematoma, dissection, or aneurysm. No evidence of pul monary thromboembolic disease. 2. No pulmonary mass or consolidation Electronically signed by: Jimmie Dowell MD (03/07/2021 10:43 AM) [id number] DICTATED and SIGNED BY: JIMMIE DOWELL MD DATE: 03/07/21 [id number] 0 PERC rule for pulmonary embolus 0 criteria No need for further workup, as <2% chance of PE. If no criteria are positive and clinicians pre-test probability is <15%, PERC Rule criteria are satisfied. Course & Med Decision Making: Course & Med Decision Making Pertinent Labs and Imaging studies reviewed. (See chart for details) Concern for atypical chest pain in the setting of high blood pressure that significantly improved, [address] of the chest showed no pulmonary embolus. PERC negative. I do suspect some anxiety related component. Incidental finding of UTI. Will discharge home with strict ED return precautions were given for syncope, neurologic deficits or fever. Encouraged urgent outpatient follow-up with PMD and cardiology for outpatient evaluation. Life-threatening processes were considered but are low suspicion at this time, given history, physical exam and ED workup. Pt was educated on all prescription medications and adverse effects. All patient's questions were answered and pt was stable at time of discharge. Life/limb-threatening differential includes but is not limited to, acute myocardial infarction, aortic dissection, congestive heart failure, esophageal injury including rupture, surgical abdomen, arrhythmia, cardiomyopathy, myocarditis, pericarditis, peptic ulcer disease, pneumomediastinum, pneumonia, pneumothorax, pulmonary embolus, unstable angina, rib fracture, contusion, pericardial tamponade or effusion, traumatic injury including mediastinal hemorrhage or hematoma, or pulmonary contusion. I have spoken with the patient and/or caregivers. I explained the patient's condition, diagnoses and treatment plan based on the information available to me at this time. I have answered the patient and/or caregiver's questions and addressed any concerns. The patient and/or caregivers have a good understanding of patient's diagnosis, condition and treatment plan as can be expected at this point. Vital signs have been stable. Patient's condition is stable and appropriate for discharge from the emergency department. Patient will pursue further outpatient evaluation with primary care physician or other designated or consulting physician as outlined in the discharge instructions. The patient and/or caregivers are agreeable to this plan of care and follow-up instructions have been explained in detail. The patient and/or caregivers have received these instructions in written form and have expressed an understanding of the discharge instructions. The patient and/or caregivers are aware that any significant change of condition or worsening of symptoms should prompt immediate return to this or the closest emergency department or call to 1Mel Urena Disclaimer: Romel Disclaimer: This electronic medical record was generated, in whole or in part, using a voice recognition dictation system. Departure Departure Impression: Primary Impression: Atypical chest pain Additional Impressions: Anxiety UTI (urinary tract infection) Disposition: 01 HOME / SELF CARE / HOMELESS Condition: STABLE Referrals: NO PCP (PCP) Follow-up with your primary care physician in 24 to 48 hours OR FOLLOW UP WITH FAMILY MEDICINE: [address] [facility], [facility] [address] [place] [address] Patient Instructions: Chest Pain (Nonspecific), Urinary Tract Infection Additional Instructions: FOLLOW UP WITH CARDIOLOGY: FOR DEFINITIVE MANAGEMENT of chest pain [facility] Cardiology [address] [facility] [address] [place] [address] EMERGENCY DEPARTMENT GENERAL DISCHARGE INSTRUCTIONS Thank you for coming to [facility] Emergency Department (ED) today and trusting us with you care. We trust that you had a positive experience in our Emergency Department. If you wish to speak to the department management, you may call the Director at [phone]. YOUR FOLLOW UP INSTRUCTIONS ARE FOLLOWS: 1. Do you have a private Doctor? If you do not have a private doctor, please ask for a resource list of physicians or clinics that may be able to assist you with follow up care. 2. The Emergency Physicain has interpreted your x-rays. The X-Ray specialist will also review them. If there is a change in the findings, you will be notified in 48 hours when at all possible. 3. A lab test or culture has been done, your results will be reviewed and you will be notified if you need a change in treatment. ADDITIONAL INSTRUCTIONS AND INFORMATION: 1. Your care today has been supervised by a physician who is specially trained in emergency care. Many problems require more than one evaluation for a complete diagnosis and treatment. We recommend that you schedule your follow up appointment as recommended to ensure complete treatment of you illness or injury. If you are unable to obtain follow up care and continue to have a problem, or if your condition worsens, we recommend that you return to the ED. 2. We are not able to safely determine your condition over the phone nor are we able to give sound medical advice over the phone. For these safety reasons, if you call for medical advice we will ask you to come to the ED for further evaluation. 3. If you have any questions regarding these discharge instructions please call the ED at [phone]. SAFETY INFORMATION: In the interest of safety, wellness, and injury prevention; we encourage you to wear your sealbelt, if you smoke; quite smoking, and we encourage family to use a protective helmet for bicycling and other sporting events that present an increased risk for head injury. IF YOUR SYMPTOMS WORSEN OR NEW SYMPTOMS DEVELOP, OR YOU HAVE CONCERNS ABOUT YOUR CONDITION; OR IF YOUR CONDITION WORSENS WHILE YOU ARE WAITING FOR YOUR FOLLOW UP APPOINTMENT; EITHER CONTACT YOUR PRIMARY CARE DOCTOR, THE PHYSICIAN WHOSE NAME AND NUMBER YOU WERE Christy LIND, OR RETURN TO THE ED IMMEDIATELY. Scripts Nitrofurantoin Monohyd/M-Cryst (MACROBID 100 MG CAPSULE) 100 Mg Capsule 1 CAP PO BID for 10 Days, #20 CAP 0 Refills Prov: JUANA ANAYA DO 03/07/21 JUANA ANAYA DO Mar 07, 2021 08:44
--- NOTE | 2021-03-07 09:09 | RAD ---
Site ID: [id number] EXAMINATION: XR CHEST 1V. HISTORY: 40 years Female chest pain. COMPARISON: None. Findings: There is a nodular density projecting over the mid the chest which could relate to ECG destiny tors leads. These need to be removed and repeat chest x-ray recommended to ensure no lung nodule is a present. No airspace consolidation. Nonspecific minimal prominence of interstitial markings is seen. The heart size is normal. There is no effusion or pneumothorax. The mediastinum and johnathon appear unremarkable. Impression: Appearance of nodular density projecting over the mid the right lung is possibly related to an ECG lead. Better evaluation with PA and lateral views after removal of ECG leads and wires from the chest is recommended. Electronically signed by: Wolf Patricio MD (03/07/2021 9:07 AM) [id number]
[2021-03-07 09:18] LABS: CREATININE 1.1 mg/dL (0.6-1.0); POTASSIUM 4.2 mmol/L (3.5-5.1)
[2021-03-07 09:25] LABS: ALBUMIN 3.4 g/dL (3.4-5.0); ALBUMIN/GLOBULIN RATIO 0.9 (1.0-1.7); MAGNESIUM 2.1 mg/dL (1.8-2.4); TOTAL BILIRUBIN 0.2 mg/dL (0.2-1.0); TOTAL PROTEIN 7.3 g/dL (6.4-8.2)
[2021-03-07 09:26] LABS: BASO % 1 % (0-3); EOS # 0.1 x10^3/uL (0.0-0.7); EOS % 1 % (0-3); HEMATOCRIT 39.3 % (36.0-47.0); HEMOGLOBIN 13.6 g/dL (12.0-15.5); LYMPH # 2.1 x10^3/uL (1.0-4.8); LYMPH % 24 % (24-48); MEAN CORPUSCULAR HEMOGLOBIN 30 pg (25-35); MEAN CORPUSCULAR HGB CONC 35 g/dL (31-37); MEAN CORPUSCULAR VOLUME 87 fL (79-100); MONO # 0.5 x10^3/uL (0.0-1.1); MONO % 6 % (0-9); NEUT # 5.8 x10^3/uL (1.8-7.7); NEUT % 69 % (31-73); PLATELET COUNT 306 x10^3/uL (140-400); RED BLOOD COUNT 4.53 x10^6/uL (3.50-5.40); RED CELL DISTRIBUTION WIDTH 13.2 % (11.5-14.5); WHITE BLOOD COUNT 8.5 x10^3/uL (4.0-11.0)
[2021-03-07 09:27] LABS: PREG TEST PT QUAL NEGATIVE (NEG)
[2021-03-07] MEDS ORDERED: IV NORMAL SALINE 1000ML BAG 1,000 ML IV ONE (09:45)
[2021-03-07 10:10] LABS: BARBITURATES NEG (NEG); BENZODIAZEPINES NEG (NEG); BILIRUBIN,URINE NEGATIVE (NEG); CANNABINOIDS NEG (NEG); CLARITY,URINE CLEAR; COCAINE NEG (NEG); COLOR,URINE YELLOW; METHADONE NEG (NEG); NITRITE,URINE POSITIVE (NEG); OPIATES NEG (NEG); PH,URINE 6.5 (<5.0-8.0); PHENCYCLIDINE NEG (NEG); PROTEIN,URINE NEGATIVE (NEG-TRACE); UROBILINOGEN,URINE 0.2 mg/dL (0.2 mg/dL)
[2021-03-07 10:13] LABS: AMPHETAMINE/METHAMPHETAMINE NEG (NEG)
[2021-03-07] MEDS ORDERED: IOHEXOL 350 MG/ML 100 ML VIAL. IV ONE (10:15)
[2021-03-07 10:20] LABS: BACTERIA,URINE MANY /HPF (0-FEW); RBC,URINE OCC /HPF (0-2)
[2021-03-07] MEDS ORDERED: CONTRAST GIVEN. MC PRN (10:30)
--- NOTE | 2021-03-07 10:45 | RAD ---
CTA CHEST INDICATION: severe cp, r/o dissection COMPARISON STUDY: Chest radiograph 03/07/2021. CT chest 04/13/2020. TECHNIQUE: Unenhanced axial images were obtained through the thoracic aorta. Following the uneventfu l administration of a bolus of intravenous contrast, 80 Omnipaque 350, thin section axial CT images w ere obtained through the chest using the CT aorta protocol. Multiplanar reconstructions were obtained through the aorta. 3-D and MIP reconstructions were also obtained. PQRS compliance statement: One or more of the following individualized dose reduction techniques were utilized for this examinat ion: 1. Automated exposure control 2. Adjustment of the mA and/or kV according to patient size 3. Use of iterative reconstruction technique FINDINGS: Unenhanced aorta: No mediastinal hemorrhage or periaortic fluid collection. No evidence of intramural hematoma. Enhanced aorta: No evidence of aortic dissection or aneurysm. No atherosclerosis or mural thrombus. Heart and Mediastinum: The visualized thyroid gland is normal in size and attenuation. No axillary or supraclavicular lymphadenopathy. No mediastinal, hilar or retrocrural lymphadenopathy. Calcified med iastinal and right hilar lymph nodes consistent with remote granulomatous disease The heart and peric ardium are within normal limits. The pulmonary arteries are within normal limits. Lungs and Airways: No pulmonary mass or consolidation. Normal central airways. Pleura: The pleural spaces are normal. Abdomen: The visualized abdominal organs demonstrate no abnormality. Bones and Soft Tissues: No acute osseous abnormality. T9 sclerotic focus, likely a bone island. IMPRESSION: 1. No aortic intramural hematoma, dissection, or aneurysm. No evidence of pulmonary thromboembolic di sease. 2. No pulmonary mass or consolidation Electronically signed by: Garfield Dowell MD (03/07/2021 10:43 AM) [id number]
[2021-03-07 12:26] VITALS: BP 141/68
[2021-03-07] MEDS ORDERED: NITR100C62 PO (12:45)
--- NOTE | 2021-03-07 18:05 | EKG ---
[facility] [address] [place] [address] Test Date: 2021-03-07 Test Time: 08:39:55 Pat Name: ISAMAR SHIELDS Department: Room: Gender: F Project Landscape Architect: : 1980 Requested By: JUANA ANAYA Order Number: [id number] Reading MD: Measurements Intervals [place] Rate: 84 P: 43 [place]: 156 QRS: 26 QRSD: 90 T: 34 QT: 364 QTc: 433 Interpretive Statements SINUS RHYTHM LOW LIMB LEAD VOLTAGE QRS(T) CONTOUR ABNORMALITY CONSIDER ANTEROLATERAL MYOCARDIAL DAMAGE POSSIBLY ABNORMAL ECG RI6.02 No previous ECG available for comparison
== END 2021-03-07 13:12 | disposition home or self-care (01) ==
LOC: ER 08:30
DX: R07.89 Other chest pain (principal); F41.9 Anxiety disorder, unspecified; N39.0 Urinary tract infection, site not specified; J45.909 Unspecified asthma, uncomplicated; I10 Essential (primary) hypertension; F17.200 Nicotine dependence, unspecified, uncomplicated; Z88.0 Allergy status to penicillin
CPT/HCPCS: 36415; 71045; 71275; 80053; 80307; 81001; 83735; 83880; 84484; 84703; 85025; 85379; 87086; 93005; 96361; 96374; 99285; J2060; J7030; Q9967; 87077; 87186

== ENCOUNTER → 2021-04-10 | Outpatient (CLI) | payer BC ==
[~2021-04-10] MED LIST changes: +NITR100C62 PO
--- NOTE | 2021-04-10 15:32 | CARD ---
MR#: [id number] Date of Study: 04/10/2021 Ordering Physician: DULCE MARIA LADD, Referring Physician: Jammie CARUSO: Lianna Ly RDCS APPROVED REPORT INDICATION Syncope RISK FACTORS Hypertension Reason : Dizziness PROCEDURE The patient underwent an Exercise Stress Test using the Parth Protocol. Blood pressure, heart rate, a nd EKG were monitored. An Echocardiogram was performed by fire management technician in four stages in quad fashion. At peak stress four se lected images were obtained and placed side by side with resting images for comparison. STRESS ECHO FINDINGS The resting Echocardiogram showed normal left ventricular systolic contractility with an estimated Ej ection Fraction of about 60 %. The Stress Echocardiogram showed normal augmentation of myocardial wall segments using a 16 segment m danny. The Stress Echocardiogram left ventricular systolic contractility has an estimated Ejection Fraction of about 75%. Test Type: Exercise Stress Nurse/Tech: Mariaelena Carvajal RN Test Indications: High blood pressure and syncopal episodes Cardiac History and Allergies: See [facility] EMR NKDA Medications: See EMR Medical History: See EMR Resting ECG: SR Resting Heart Rate: 84 bpm Resting Blood Pressure: 136/59mmHg Pretest Chest Pain: No chest pain Nurse/Tech Notes S1,S2 and lungs wheezy throughout all lobes. Stress Symptoms Dizziness,Flushing,Fatigue POST EXERCISE Reason for Termination: Reached target heart rate, Fatigue Target HR: Yes Max HR: 181 bpm 101% of Maximum Predicted HR: 180 bpm Exercise duration: 9:32 min:sec, 4 Stage Exercise capacity: 10.1METs Max Blood Pressure: 202/62mmHg Blood Pressure response to exercise: Abnormal increase in blood pressure during stress. Heart Rate response to exercise: WNL Chest Pain: No. Arrhythmia: Yes. PVCs ST Change: No. INTERPRETATION Stress EKG Conclusion: Baseline EKG showed sinus rhythm. No ischemic changes at peak stress. No arr hythmias. <Conclusion> Treadmill exercise stress echocardiogram did not show any evidence of ischemia or infarct. Normal left ventricle systolic function with ejection fraction estimated at 60%. Patient had good activity tolerance. Low risk for cardiac events. Signed by : Dulce Maria Ladd, Electronically Approved : 04/10/2021 15:32:01
--- NOTE | 2021-04-10 15:52 | RAD ---
MR#: [id number] Date of Study: 04/10/2021 Ordering Physician: DULCE MARIA SOMERS, Referring Physician: DULCE MARIA SOMERS, Tech: Heidi Day RDMS, RVT, RTR APPROVED REPORT Patient Location : OUT-PATIENT Indications Varicose Veins Venous Insufficiency Greater Saphenous Veins (GSV) Significant venous relux noted in the RIGHT GSV at the following levels : Superficial Femoral Junctio n, Proximal Thigh, Mid Thigh, Distal Thigh, Proximal Calf, Mid Calf, Distal Calf Significant venous relux noted in the LEFT GSV at the following levels : Superficial Femoral Junction , Proximal Thigh, Mid Thigh, Distal Thigh, Proximal Calf, Mid Calf, Distal Calf Findings Grayscale imaging of superficial veins bilateral lower extremities did not show any obvious thrombus. Spectral waveform and color duplex analysis was performed both lower extremity veins. Significant re flux was noted bilateral greater saphenous veins all the way from the groin to the ankle. The right greater saphenous vein measured 5.5 mm at the saphenofemoral junction and showed significan t reflux of 2.4 seconds. The left greater saphenous vein measured 8.4 mm at the saphenofemoral junct ion and showed significant reflux of 1.3 seconds. The lesser saphenous veins bilaterally did not show any significant reflux. Critical Notification Critical Value: No <Conclusion> Bilateral lower extremity venous reflux study showed significant venous insufficiency involving bilat eral greater saphenous veins. Signed by : Dulce Maria Somers, Electronically Approved : 04/10/2021 15:51:27
== END ==
LOC: ECHO 12:37
PROVIDERS: ATTEND Internal Medicine Cardiovascular Disease
DX: I87.2 Venous insufficiency (chronic) (peripheral) (principal); R07.9 Chest pain, unspecified; R55 Syncope and collapse
CPT/HCPCS: 93017; 93350; 93970